=== PATIENT | male | born 1950 | race Caucasian/White ===

== ENCOUNTER 2016-10-27 13:53 | Inpatient (IN) | payer BC ==
[~2016-10-27] VITALS: Ht 167.6 cm; Wt 81.6 kg
[~2016-10-27 13:53] MED LIST: ASPIRIN 32325 MG/TAB PO; CEPHALEXIN500 M1 PO; CRESTOR20 MG PO; FOLIC ACID0.4 MG PO; MULTIPLE VITAMI1 CTB PO; OMEGA-3 FISH1200 MG PO; PRILOSEC 20MG20 MG PO; TENORMIN 2525 MG/TAB PO; ZESTRIL40 MG PO
[2016-10-27] MEDS ORDERED: HCTZ12.5TAB PO (14:07)
[2016-10-27] MEDS ORDERED: NITROSTAT0.4 MG/TAB SL (14:08)
[2016-10-27 14:44] LABS: BASO # 0.1 (0.0-0.2); BASO % 1.3 % (0.0-2.0); EOS # 0.2 (0.0-0.7); EOS % 4.9 % (0-4.0); GRAN # 2.1 (1.4-6.5); GRAN % 45.6 % (42.2-75.2); HEMATOCRIT 41.5 % (42.0-52.0); HEMOGLOBIN 14.7 g/dl (13.5-18.0); LYMPH # 1.7 (1.2-3.4); MEAN CELL VOLUME 93 fl (80.0-100.0); MEAN CORPUSCULAR HEMOGLOBIN 33 pg (27.0-31.0); MEAN CORPUSCULAR HGB CONC 35 g/dl (33.0-37.0); MEAN PLATELET VOLUME 9.9 fl (7.4-10.4); MONO # 0.6 (0.1-0.6); PLATELET COUNT 152 K/mm3 (130-400); RED BLOOD COUNT 4.48 M/mm3 (4.20-5.60); REDCELL DISTRIBUTION WIDTH-CV 13.1 % (11.5-14.5); WHITE BLOOD COUNT 4.7 K/mm3 (4.8-10.8)
[2016-10-27 14:57] LABS: ADJUSTED CALCIUM 9.3 mg/dL (8.4-10.2); ALANINE AMINOTRANSFERASE 76 U/L (21-72); ALBUMIN 3.9 gm/dL (3.5-5.0); ALKALINE PHOSPHATASE 55 U/L (50-136); ANION GAP 11 mmol/L (7-16); BLOOD UREA NITROGEN 19 mg/dL (9-20); CALCIUM 9.2 mg/dL (8.4-10.2); CARBON DIOXIDE 25 mmol/L (22-30); CHLORIDE 101 mmol/L (98-107); CREATININE, serum 1.01 mg/dL (0.66-1.25); GLUCOSE 132 mg/dL (74-106); POTASSIUM 3.8 mmol/L (3.4-5.0); SODIUM 138 mmol/L (137-145); TOTAL PROTEIN 6.7 gm/dL (6.4-8.2)
[2016-10-27 15:05] LABS: B-TYPE NATRIURETIC PEPTIDE 59 pg/mL (0-125)
[2016-10-27 15:30] LABS: TROPONIN-I < 0.012 ng/mL (0.000-0.034)
[2016-10-27 16:26] VITALS: BP 153/90; PULSE 59; TEMP 98.2
[2016-10-27 16:29] VITALS: BP 153/90; PULSE 60; TEMP 98.2
[2016-10-27 19:43] VITALS: BP 105/75; PULSE 54; TEMP 97.7
[2016-10-27 20:11] LABS: MAGNESIUM 1.7 mg/dL (1.6-2.3)
[2016-10-27 20:30] LABS: TROPONIN-I 0.878 ng/mL (0.000-0.034)
[2016-10-27 21:05] LABS: INR 1.1 (0.8-3.0); PROTHROMBIN TIME 12.2 SECONDS (9.7-12.8)
[2016-10-27 21:08] LABS: PARTIAL THROMBOPLASTIN TIME 39.8 SECONDS (26.0-37.0)
[2016-10-28] VITALS (675 sets, daily range): BP systolic 96–150; BP diastolic 54–86; PULSE 56–79; TEMP 96.4–98.3; O2SAT 92–100
[2016-10-28 10:09] LABS: HEMATOCRIT 42.4 % (42.0-52.0); HEMOGLOBIN 14.8 g/dl (13.5-18.0); MEAN CELL VOLUME 93 fl (80.0-100.0); MEAN CORPUSCULAR HEMOGLOBIN 33 pg (27.0-31.0); MEAN CORPUSCULAR HGB CONC 35 g/dl (33.0-37.0); MEAN PLATELET VOLUME 10.6 fl (7.4-10.4); PLATELET COUNT 137 K/mm3 (130-400); RED BLOOD COUNT 4.56 M/mm3 (4.20-5.60); REDCELL DISTRIBUTION WIDTH-CV 13.1 % (11.5-14.5); WHITE BLOOD COUNT 5.5 K/mm3 (4.8-10.8)
[2016-10-28 10:10] LABS: INR 1.1 (0.8-3.0); PROTHROMBIN TIME 11.9 SECONDS (9.7-12.8)
[2016-10-28 10:13] LABS: PARTIAL THROMBOPLASTIN TIME 39.4 SECONDS (26.0-37.0)
[2016-10-28 10:39] LABS: TROPONIN-I 5.38 ng/mL (0.000-0.034)
[2016-10-28 10:46] LABS: CALCIUM 9.2 mg/dL (8.4-10.2); CREATININE, serum 0.96 mg/dL (0.66-1.25); POTASSIUM 3.9 mmol/L (3.4-5.0)
[2016-10-29] VITALS (579 sets, daily range): BP systolic 90–132; BP diastolic 39–80; PULSE 56–65; TEMP 97.6–98; O2SAT 92–99
[2016-10-29 05:42] LABS: HEMATOCRIT 39.9 % (42.0-52.0); HEMOGLOBIN 13.8 g/dl (13.5-18.0); MEAN CELL VOLUME 93 fl (80.0-100.0); MEAN CORPUSCULAR HEMOGLOBIN 32 pg (27.0-31.0); MEAN CORPUSCULAR HGB CONC 35 g/dl (33.0-37.0); PLATELET COUNT 127 K/mm3 (130-400); REDCELL DISTRIBUTION WIDTH-CV 13.2 % (11.5-14.5); WHITE BLOOD COUNT 6.1 K/mm3 (4.8-10.8)
[2016-10-29 05:54] LABS: CREATININE, serum 1.04 mg/dL (0.66-1.25); POTASSIUM 4.1 mmol/L (3.4-5.0)
[2016-10-29] MEDS ORDERED: BRILINTA90 MG PO (07:51)
[2016-10-29] MEDS ORDERED: TENORMIN 2525 MG/TAB PO (07:51)
[2016-10-29] MEDS ORDERED: ZESTRIL30 MG PO (07:52)
[2016-10-29] MEDS ORDERED: ASPIRIN E.C. 8181 MG PO (07:52)
[2016-10-29] MEDS ORDERED: NITROSTAT0.4 MG/TAB SL (10:09)
== END 2016-10-29 11:00 | disposition home or self-care (01) | DRG 247 ==
LOC: COL.ER 13:53 → MEDICAL 15:40 → ICU 10-28 11:45
PROVIDERS: Emergency Medicine; Internal Medicine; Internal Medicine Cardiovascular Disease; Physician Assistant
PROC: 027034Z Dilation of Coronary Artery, One Artery with Drug-eluting Intraluminal Device, Percutaneous Approach (ICD-10-PCS; principal; 2016-10-28)
PROC: 02C03ZZ Extirpation of Matter from Coronary Artery, One Artery, Percutaneous Approach (ICD-10-PCS; 2016-10-28)
PROC: B2111ZZ Fluoroscopy of Multiple Coronary Arteries using Low Osmolar Contrast (ICD-10-PCS; 2016-10-28)
DX: I21.4 Non-ST elevation (NSTEMI) myocardial infarction (principal); I25.10 Atherosclerotic heart disease of native coronary artery without angina pectoris; I10 Essential (primary) hypertension; Z95.1 Presence of aortocoronary bypass graft; Z87.891 Personal history of nicotine dependence
CPT/HCPCS: 99223-AI; 99232-AI; 99239; C1725; C1757; C1760; C1769; C1874; C1887; C1894; C9600; J0583; J1650; J2250; J2405; J3010; J7030; Q9967

== ENCOUNTER → 2017-02-02 | Outpatient (CLI) | payer BC ==
[~2017-02-02] MED LIST changes: +ASPIRIN E.C. 8181 MG PO; +BRILINTA90 MG PO; +HCTZ12.5TAB PO; +NITROSTAT0.4 MG/TAB SL; +ZESTRIL30 MG PO
== END ==
LOC: COL.RAD 10:42
DX: N20.0 Calculus of kidney (principal); R31.0 Gross hematuria
CPT/HCPCS: Q9967

== ENCOUNTER → 2017-05-19 | Outpatient (CLI) | payer BC | LOC: COL.RAD 07:39 | DX: M79.645 Pain in left finger(s) (principal) | CPT/HCPCS: J3301; Q9967 ==

== ENCOUNTER 2017-10-15 14:36 | Outpatient (RCR) | payer BC | END 2018-01-04 | disposition still patient (30) | LOC: COL.CR | DX: Z48.812 Encounter for surgical aftercare following surgery on the circulatory system (principal); Z95.1 Presence of aortocoronary bypass graft ==